=== PATIENT | female | born 1925 | race Caucasian/White ===

== ENCOUNTER → 2016-07-24 | Outpatient (CLI) | payer MEDICARE, BC ==
[~2016-07-24] MED LIST: AMOX1TAB10 PO; ANAS1TAB PO; ASPI-664 PO; ATOR10TA23 PO; BIMA2.5D4 OP; DOXY100T2 PO; [UNRECOGNIZED DRUG - CODE] OP
--- NOTE | 2016-07-24 16:54 | RADRPT ---
PROCEDURE: US Lower extremity Venous. CLINICAL INDICATION: Left leg edema TECHNIQUE: Multiple sonographic images of the left lower extremity deep venous system was obtained utilizing grayscale, color-flow, compressive sonography and doppler imaging with augmentation. The images were reviewed on a PACS workstation. COMPARISON: None. FINDINGS: There is normal compressibility and flow within the left common femoral, femoral, posterior tibial, peroneal and popliteal veins. There is soft tissue swelling. RPTAT: AA IMPRESSION: No sonographic evidence for deep venous thrombosis. .Indio Casillas MD, MD Date Time Electronically viewed and signed by .Indio Casillas MD, on 07/24/2016 16:54 .S/
== END | disposition home or self-care (01) ==
LOC: VAS 15:47
PROVIDERS: ATTEND Internal Medicine
DX: M79.89 Other specified soft tissue disorders (principal)
CPT/HCPCS: 93971

== ENCOUNTER → 2016-07-26 | Outpatient (CLI) | payer MEDICARE, BC ==
--- NOTE | 2016-07-26 10:35 | RADRPT ---
PROCEDURE: US Abdomen (right upper quadrant). CLINICAL INDICATION: Right upper quadrant abdomen pain. TECHNIQUE: Multiple real-time longitudinal and transverse images of the right upper quadrant of th e abdomen were acquired utilizing a curved array transducer. Images were reviewed on a high-resoluti on PACS workstation. COMPARISON: None FINDINGS: The liver is normal in size and normal in echogenicity. There is no focal hepatic lesion. Color Doppler and pulsed Doppler sonography demonstrate normal a ntegrade flow in the portal vein. The gallbladder is normal with no stones or wall thickening. There is no pericholecystic fluid jhoan ection. The bile ducts are normal with the common bile duct measuring 5.4 mm in diameter. The visualized portions of the pancreas are unremarkable with obscuration of the tail of the pancrea s. No free fluid is present. The right kidney measures 9.7 x 4.2 x 4.2 cm. There is normal echogenicity of the right kidney. T here is no perinephric fluid collection. No hydronephrosis, mass, or calculus is seen. IMPRESSION: 1. Unremarkable right upper quadrant abdomen ultrasound. Call report: A call report of the findings was made to Dr. Nava on 07/26/2016 at 1030 hours. RPTAT: QQ .Kai Rangel MD, MD Date Time Electronically viewed and signed by .Kai Rangel MD, on 07/26/2016 10:34 .R/
== END | disposition home or self-care (01) ==
LOC: U/S 08:21
PROVIDERS: ATTEND Internal Medicine
DX: R94.5 Abnormal results of liver function studies (principal); R10.11 Right upper quadrant pain
CPT/HCPCS: 76705